=== PATIENT | female | born 1995 | race Caucasian/White ===

== ENCOUNTER 2016-09-18 03:50 | Emergency (ER) | payer SELFPAY ==
[2016-09-18 04:52] LABS: BASOPHIL % 0.5 % (0-2); PLATELET COUNT 237 x10^3mcL (130-400); RED CELL DISTRIBUTION WIDTH 12.8 % (11.5-14.5)
[2016-09-18 05:03] LABS: CALCIUM 8.9 mg/dL (8.5-10.1); CARBON DIOXIDE 28.2 mmol/L (21-32); CHLORIDE SERUM 103 mmol/L (98-107); CREATININE SERUM 0.8 mg/dL (0.6-1.0); GFR1 > 60 mL/min; GLUCOSE SERUM 111 mg/dL (74-106); POTASSIUM SERUM 3.6 mmol/L (3.5-5.1); SODIUM SERUM 138 mmol/L (136-145)
[2016-09-18 05:07] LABS: ALBUMIN 3.6 g/dL (3.4-5.0); ALKALINE PHOSPHATASE 80 U/L (46-116); ALT/SGPT 32 U/L (14-59); AST/SGOT 16 U/L (15-37); BILIRUBIN TOTAL 0.3 mg/dL (0.20-1.00); LIPASE 106 IU/L (73-393); TOTAL PROTEIN, SERUM 7.1 g/dL (6.4-8.2)
[2016-09-18 05:32] VITALS: BP 113/66
== END 2016-09-18 05:32 | disposition home or self-care (01) ==
LOC: ED 03:50
PROVIDERS: Emergency Medicine
DX: R07.89 Other chest pain (principal); F41.9 Anxiety disorder, unspecified
CPT/HCPCS: 36415

== ENCOUNTER 2017-06-03 23:44 | Emergency (ER) | payer SELFPAY ==
[~2017-06-03] VITALS: Ht 154.9 cm; Wt 84.4 kg
[2017-06-03 23:59] VITALS: BP 131/82; Ht 154.9 cm; Wt 84.4 kg
== END 2017-06-04 00:29 | disposition left against medical advice (07) ==
LOC: ED 23:44
DX: Z53.21 Procedure and treatment not carried out due to patient leaving prior to being seen by health care provider (principal)

== ENCOUNTER 2019-10-13 14:40 | Emergency (ER) | payer MEDICAID ==
[~2019-10-13] VITALS: Ht 154.9 cm; Wt 83.9 kg
[2019-10-13 14:40] VITALS: BP 118/80
== END 2019-10-13 15:34 | disposition home or self-care (01) ==
LOC: ED 14:40
DX: B34.9 Viral infection, unspecified (principal); G43.909 Migraine, unspecified, not intractable, without status migrainosus

== ENCOUNTER 2020-02-28 05:08 | Emergency (ER) | payer MEDICAID ==
[~2020-02-28] VITALS: Ht 154.9 cm; Wt 86.7 kg
[2020-02-28 05:27] VITALS: Ht 154.9 cm; Wt 86.7 kg
[2020-02-28 06:46] VITALS: BP 135/85
== END 2020-02-28 06:46 | disposition home or self-care (01) ==
LOC: ED 05:08
DX: R07.89 Other chest pain (principal); M54.2 Cervicalgia; R00.2 Palpitations; M54.9 Dorsalgia, unspecified; G43.909 Migraine, unspecified, not intractable, without status migrainosus